=== PATIENT | female | born 1985 | race Caucasian/White ===

== ENCOUNTER 2024-03-12 14:13 | Emergency (ER) | payer OTHER ==
[~2024-03-12] VITALS: Ht 170.2 cm; Wt 95.3 kg
[2024-03-12] MEDS ORDERED: MAGNESIUM HYDROXIDE 30 ML LIQUID UDC ONE (14:38)
[2024-03-12] MEDS: MAGNESIUM HYDROXIDE 30 ML LIQUID UDC PO ONE (15:09)
[2024-03-12 15:28] VITALS: BP 121/71; O2SAT 99
== END 2024-03-12 15:27 | disposition home or self-care (01) ==
LOC: ER 14:13
DX: K56.41 Fecal impaction (principal)
CPT/HCPCS: A4606; A4663